=== PATIENT | female | born 1980 | race Caucasian/White ===

== ENCOUNTER 2016-12-26 19:43 | Emergency (ER) | payer BC ==
[2016-12-26] MEDS ORDERED: Lidocaine 2% PF * 5 ML VIAL INJ ONE (20:11)
[2016-12-26] MEDS ORDERED: Cephalexin CAP* 500 MG PO ONE (20:31)
--- NOTE | 2016-12-26 20:36 | UC ---
Skin Complaint HPI - HPI Summary HPI Summary: cyst on the tailbone x 2 days + redness, swollen , painful no fever, no chills - History of Current Complaint Chief Complaint: UCSkin Time Seen by Provider: 12/26/16 20:02 Stated Complaint: personal Hx Obtained From: Patient Hx Last Menstrual Period: 12/15/16 Onset/Duration: Gradual Onset, Lasting Days - 2, Still Present Timing: Constant Onset Severity: Moderate Current Severity: Moderate Location: Other - tailbone Character: Swelling, Pain, Redness, Raised, Painful Aggravating: Touch Alleviating: Nothing Associated Signs & Symptoms: Positive: Tenderness. Negative: Nausea, Vomiting, Red Streaks - Allergy/Home Medications Allergies/Adverse Reactions: Allergies Allergy/AdvReac Type Severity Reaction Status Date / Time No Known Allergies Allergy Verified 12/26/16 20:00 Home Medications: Home Medications Naproxen Sodium [Naproxen Sodium 220 mg cap] 220 mg PO DAILY PRN 12/26/16 [ History Confirmed 12/26/16] Review of Systems Constitutional: Negative Eyes: Negative ENT: Negative Respiratory: Negative Gastrointestinal: Negative All Other Systems Reviewed And Are Negative: Yes PMH/Surg Hx/FS Hx/Imm Hx Previously Healthy: Yes - Surgical History Surgical History: Yes Surgery Procedure, Year, and Place: TEAR DUCT SURGICALLY OPENED - Family History Known Family History: Positive: Hypertension Negative: Diabetes - Social History Alcohol Use: Rare Substance Use Type: None Smoking Status (MU): Never Smoked Tobacco Physical Exam Triage Information Reviewed: Yes Appearance: Well-Appearing, No Pain Distress, Well-Nourished Vital Signs: Initial Vital Signs Temp 98.6 F 12/26/16 19:52 Pulse 77 12/26/16 19:52 Resp 16 12/26/16 19:52 BP 112/73 12/26/16 19:52 Pulse Ox 100 12/26/16 19:52 Vital Signs Reviewed: Yes Eyes: Positive: Conjunctiva Clear ENT: Positive: Normal ENT inspection, Hearing grossly normal, Pharynx normal Neck exam: Normal Respiratory: Positive: Chest non-tender, Lungs clear, Normal breath sounds Cardiovascular: Positive: RRR, No Murmur, Pulses Normal Skin: Positive: Other - + pilonidal cyst , + erythem , tenderness, Course/Dx - Diagnoses Provider Diagnoses: pilonidal cyst Procedures - Incision and Drainage Site: pilonidal cyst Anesthesia: Local - 2% lidocaine x 5 cc Instrument(s): Scalpel - 11 , Needle - 25 Packing: Other - none Discharge - Discharge Plan Condition: Stable Disposition: HOME Prescriptions: Cephalexin CAP* [Keflex CAP*] 500 mg PO TID #30 cap Patient Education Materials: Pilonidal Cyst (ED) Referrals: Sofie Devine MD [Primary Care Provider] - 5 Days
[2016-12-26 20:43] VITALS: BP 112/73
== END 2016-12-26 20:55 | disposition home or self-care (01) ==
LOC: UCCORT 19:43
DX: L05.91 Pilonidal cyst without abscess (principal)
CPT/HCPCS: 10080; 99212; A9270-GY; G0463

== ENCOUNTER 2018-06-10 09:15 | Emergency (ER) | payer BC ==
[2018-06-10 10:38] VITALS: BP 120/75
--- NOTE | 2018-06-10 11:31 | UC ---
Complaint Female HPI - HPI Summary HPI Summary: Pt presents with c/o urinary symptoms of frequency and pelvic pressure. Pt has concern for UTI. Pt is also trying to get . - History Of Current Complaint Chief Complaint: UCGU Stated Complaint: URINARY Time Seen by Provider: 06/10/18 10:35 Hx Obtained From: Patient Hx Last Menstrual Period: 05/28/18 ?: No Onset/Duration: Sudden Onset, Lasting Days, Still Present Timing: Constant Severity Initially: Mild Pain Intensity: 0 Pain Scale Used: 0-10 Numeric Character: Not Applicable Aggravating Factor(s): Urination Alleviating Factor(s): Other - urination Associated Signs And Symptoms: Positive: Negative - Risk Factors Ectopic Risk Factor: Negative, Maternal Age ^ 30 Ovarian Torsion Risk Factor: Reproductive Age - Allergies/Home Medications Allergies/Adverse Reactions: Allergies Allergy/AdvReac Type Severity Reaction Status Date / Time No Known Allergies Allergy Verified 06/10/18 10:34 Home Medications: Home Medications Levothyroxine TAB* [Synthroid 25 MCG TAB*] 25 mcg PO DAILY 06/10/18 [History Confirmed 06/10/18] Prenat 115/Iron Fum/Folic/Dss [Pnv-Ferrous [id number]-Cqky-[id number]] 1 tab PO DAILY [History Confirmed 06/10/18] PMH/Surg Hx/FS Hx/Imm Hx Previously Healthy: Yes - Surgical History Surgical History: Yes Surgery Procedure, Year, and Place: TEAR DUCT SURGICALLY OPENED INFANT - Family History Known Family History: Positive: Hypertension Negative: Diabetes - Social History Occupation: Employed Full-time Lives: With Family Alcohol Use: Rare Substance Use Type: None Smoking Status (MU): Never Smoked Tobacco Have You Smoked in the Last Year: No Review of Systems All Other Systems Reviewed And Are Negative: Yes Constitutional: Positive: Negative Skin: Positive: Negative Eyes: Positive: Negative Respiratory: Positive: Negative Cardiovascular: Positive: Negative Gastrointestinal: Positive: Negative Genitourinary: Positive: Frequency, Other - pelvic pressure Motor: Positive: Negative Neurovascular: Positive: Negative Musculoskeletal: Positive: Negative Neurological: Positive: Negative Psychological: Positive: Negative Is Patient Immunocompromised?: No Physical Exam Triage Information Reviewed: Yes Appearance: Well-Appearing Vital Signs: Initial Vital Signs Temp 98.2 F 06/10/18 10:34 Pulse 78 06/10/18 10:34 Resp 15 06/10/18 10:34 BP 120/75 06/10/18 10:34 Pulse Ox 100 06/10/18 10:34 Vital Signs Reviewed: Yes Eye Exam: Normal ENT Exam: Normal Dental Exam: Normal Neck exam: Normal Respiratory Exam: Normal Respiratory: Positive: No respiratory distress Abdomen Description: Positive: Nontender Musculoskeletal Exam: Normal Neurological Exam: Normal Psychological Exam: Normal Skin Exam: Normal Complaint Female Dx - Differential Dx/Diagnosis Differential Diagnosis/HQI/PQRI: Endometriosis, , Sexually Transmitted Disease, Urinary Tract Infection Provider Diagnosis: Pelvic pressure in female Discharge - Sign-Out/Discharge Documenting (check all that apply): Patient Departure All imaging exams completed and their final reports reviewed: No Studies - Discharge Plan Condition: Stable Disposition: HOME Prescriptions: Phenazopyridine TAB* [Pyridium 100 mg TAB*] 100 mg PO Q8H #3 tab Patient Education Materials: Pelvic Pain in Women (ED) Referrals: Maryellen Tejada NP [Primary Care Provider] - If Needed - Billing Disposition and Condition Condition: STABLE Disposition: Home
== END 2018-06-10 11:14 | disposition home or self-care (01) ==
LOC: UCCORT 09:15
DX: R10.2 Pelvic and perineal pain (principal)
CPT/HCPCS: 81003; 84702; 87086; 99212; G0463